=== PATIENT | female | born 1975 | race Caucasian/White ===

== ENCOUNTER 2021-10-21 09:35 | Outpatient (CLI) | payer MEDICAID, SELFPAY ==
--- NOTE | 2021-10-21 10:00 | CRLHL7_ITS ---
For Patients: As a result of the Century Cures Act, medical imaging exams and procedure reports are released immediately into your electronic medical record. You may view this report before your referring provider. If you have questions, please contact your health care provider. 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 Ethmoid sinuses: Clear. Maxillary sinuses: Clear. The maxillary sinus drainage pathways are patent on both sides. Sphenoid sinuses: Clear, including both sphenoethmoidal recesses. Nasal Cavity: Rightward curvature of the anterior nasal septum. No polyps. No TMJ abnormalities identified. The visualized portions of the orbits, intracranial contents and upper soft tissue neck are grossly negative. Impression: 1. Sinuses are clear. 2. Mild rightward deviation of the nasal septum. Please note that all CT scans at this facility use dose modulation, iterative reconstruction, and/or weight-based dosing when appropriate to reduce radiation dose to as low as reasonably achievable. Dictated by Jonas Dimas MD @ 10/21/2021 11:28:20 AM (Electronically Signed)
== END 2021-10-21 09:36 | disposition home or self-care (01) ==
PROVIDERS: Visit Provider Otolaryngology
DX: R51.9 Headache, unspecified (principal); J34.2 Deviated nasal septum; J34.9 Unspecified disorder of nose and nasal sinuses
CPT/HCPCS: 70486

== ENCOUNTER 2021-12-10 08:20 | Day surgery (SDC) | payer MEDICAID, SELFPAY ==
[2021-12-10] VITALS (12 sets, daily range): BP systolic 100–170; BP diastolic 60–77; PULSE 61–78; RESP 12–20; TEMP 36.3–36.6; O2SAT 94–100; BMI 37.1
[2021-12-10] MEDS: BUPIVACAINE 0.5%/EPINEPHRINE 0.9 MG (30.9 ML) INJECTION (07:00)
[2021-12-10] MEDS: OXYMETAZOLINE 0.05% NASAL SPRAY 2 SPRAY NOSTRIL-B (08:15)
[2021-12-10] MEDS: SODIUM CHLORIDE 0.9 % (FLUSH) 10 ML SYRINGE IVF (08:30)
[2021-12-10] MEDS: LACTATED RINGERS 1000 ML 1,000 ML 100 ML IV (08:30)
[2021-12-10] MEDS: MUPIROCIN 1 GM PACKET 1 APPLIC TOPICAL (10:24)
[2021-12-10] MEDS: COCAINE HCL 4 % 4 ML SOLUTION NOSTRIL-B (10:24)
[2021-12-10] MEDS: AYR SALINE NASAL GEL 1 APPLIC NOSTRIL-B (10:25)
--- NOTE | 2021-12-10 10:36 | W.PM.ENTPROC ---
Procedure Note Date of procedure: 12/10/21 Procedure: Preoperative diagnosis History of previous septoplasty turbinate reduction with trauma in the interim time, nasal obstruction, nasal headache, right septal deviation, right inferior turbinate hypertrophy, bilateral middle turbinate kindra bullosa Postoperative diagnosis same Procedure limited septoplasty, submucous partial resection right inferior turbinate, endoscopic partial resection bilateral middle turbinate kindra bullosa Under general trach anesthesia patient was prepped and draped in usual fashion and nose injected and decongested. I was able to elevate mucosa overlying the right septal deviation and infracture the bone and cartilage and effectively straightened the septum. A stab incision was made in the anterior of the right inferior turbinate a tunnel created with a Bartolo dissector. A very conservative anterior submucous resection was performed with Nanci forceps. The Coblation Wand was used for hemostasis. Remainder procedure was done with the availability of a 0 degree endoscope. The right middle turbinate kindra was visualized and incised along its inferolateral aspect the bone was infractured and crushed with the Sagar forceps. This was repeated on the left side in identical fashion. A Merocel pack was trimmed lengthwise, coated in Bactroban and placed beneath the middle turbinates on each side to help maintain septal integrity and for bleeding. The patient tolerated procedure well was taken recovery in satisfactory condition. There were no complications. Blood loss was less than 10 mL. Surgeon: Dex Preston MD
[2021-12-10] MEDS: LACTATED RINGERS 1000 ML 1,000 ML 35 ML IV (10:39)
--- NOTE | 2021-12-10 10:46 | W.ANESCHARGE ---
Anesthesia Charges Start Date/Time Anesthesia Start Date: 12/10/21 Anesthesia Start Time: 10:08 Stop Date/Time Anesthesia Stop Date: 12/10/21 Anesthesia Stop Time: 10:40 Summary Emergency: No
[2021-12-10] MEDS: fentaNYL 100 MCG/2 ML inj 50 MCG IVP ×2 (10:48→10:56)
--- NOTE | 2021-12-10 10:48 | W.ANESCHARGE ---
Anesthesia Charges Start Date/Time Anesthesia Start Date: 12/10/21 Anesthesia Start Time: 10:08 Stop Date/Time Anesthesia Stop Date: 12/10/21 Anesthesia Stop Time: 10:40 Summary Emergency: No
--- NOTE | 2021-12-10 11:18 | SUR.PHASEI ---
PT. VSS, TRANSFER PT. TO [facility] VIA CART. PT. C/O PAIN. ADMIN FENTANYL - SEE EMAR.
[2021-12-10] MEDS: OXYCODONE 5 MG TABLET PO (11:36)
== END 2021-12-10 12:26 | disposition home or self-care (01) ==
PROVIDERS: Visit Provider Otolaryngology
PROC: (CPT 31231; principal; 2021-12-10 09:45)
DX: J34.2 Deviated nasal septum (principal); J34.3 Hypertrophy of nasal turbinates; J34.89 Other specified disorders of nose and nasal sinuses; R51.9 Headache, unspecified
CPT/HCPCS: 30520; 30140; 31240; 00160; 84703; A9270; J1100; J2405; J2704; J3010; J7120